=== PATIENT | female | born 1945 | race Caucasian/White ===

== ENCOUNTER 2020-01-07 12:42 | Emergency (ER) | payer MEDICARE, SELFPAY ==
[2020-01-07] MEDS ORDERED: Fentanyl 100 MCG/2 ML VIAL ONE (12:52)
--- NOTE | 2020-01-07 13:57 | RAD ---
RIGHT WRIST 4 VIEWS: Date: 01/07/2020 COMPARISON: None. FINDINGS: There is interarticular distal radius fracture with dorsal angulation and impaction. There is also in terarticular distal ulnar fracture seen to the distal radioulnar joint also with mild impaction and d orsal angulation. The scaphoid appears to be intact. Mild demineralization. IMPRESSION: Interarticular distal radius and distal ulnar fractures with impaction and dorsal angulation. POS: [facility]
--- NOTE | 2020-01-07 13:58 | RAD ---
RIGHT SHOULDER 3 VIEWS: Date: 01/07/2020 HISTORY: Injury from trauma following a fall. FINDINGS: Marked AC joint arthrosis changes, as well as some glenohumeral joint arthrosis changes of the right shoulder. No evidence for acute fracture or dislocation. 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 POS: [facility]
== END 2020-01-07 15:45 | disposition home or self-care (01) ==
LOC: ERS 12:42
DX: S52.531A Colles' fracture of right radius, initial encounter for closed fracture (principal); S52.571A Other intraarticular fracture of lower end of right radius, initial encounter for closed fracture; S52.601A Unspecified fracture of lower end of right ulna, initial encounter for closed fracture; W10.9XXA Fall (on) (from) unspecified stairs and steps, initial encounter
CPT/HCPCS: 29105; 96374; 96376; J3010

== ENCOUNTER 2020-01-13 10:01 | Day surgery (SDC) | payer MEDICARE ==
[2020-01-12 13:09] VITALS: BMI 35.4
[2020-01-13] MEDS ORDERED: Ondansetron PF 4 MG/2 ML Vial ONE (11:04)
[2020-01-13] MEDS ORDERED: Ropivacaine 0.2% HCl/PF (40 MG/20 ML VIAL) ONE (11:04)
[2020-01-13] MEDS ORDERED: PROPOFOL 200 MG/20 ML VIAL ONE (11:04)
[2020-01-13] MEDS ORDERED: Rocuronium Bromide 10 MG/ML (10ML VIAL) ONE (11:04)
[2020-01-13] MEDS ORDERED: Glycopyrrolate 0.2 MG/ML 5 ML SYRINGE ONE (11:04)
[2020-01-13] MEDS ORDERED: Dexamethasone 20 MG/5 ML VIAL ONE (11:04)
[2020-01-13] MEDS ORDERED: Ropivacaine 0.5% HCl/PF (150 MG/30 ML VIAL) ONE (11:04)
[2020-01-13] MEDS ORDERED: EPHEDRINE 25 MG/5 ML SYRINGE ONE (11:04)
[2020-01-13] MEDS ORDERED: Midazolam HCl 2 mg/2 ml Vial ONE ×2 (12:02→12:03)
[2020-01-13] MEDS ORDERED: Lidocaine 1% PF 5 ML VIAL ONE (12:02)
[2020-01-13] MEDS ORDERED: Fentanyl 100 MCG/2 ML VIAL ONE ×2 (12:02→12:04)
[2020-01-13] MEDS ORDERED: Lidocaine 2% Jelly 5 ML TUBE ONE (12:28)
[2020-01-13] MEDS ORDERED: Fentanyl 100 MCG/2 ML VIAL IV PRN (13:46)
[2020-01-13] MEDS ORDERED: Zolpidem Tartrate 5 MG TAB PO PRN (13:46)
[2020-01-13] MEDS ORDERED: Ondansetron PF 4 MG/2 ML Vial IVP PRN (13:46)
[2020-01-13] MEDS ORDERED: Acetaminophen 325 MG TAB PO PRN (13:46)
[2020-01-13] MEDS ORDERED: HYDROcodone/Acetaminophen 10/325 mg Tablet PO PRN ×2 (13:46)
[2020-01-13] MEDS ORDERED: traMADol HCl 50 MG TAB PO PRN ×2 (13:46)
[2020-01-13] MEDS ORDERED: Promethazine HCl 25 MG/ML VIAL IM PRN (13:46)
[2020-01-13] MEDS ORDERED: Ropivacaine 0.2% 550 ML 550 ML NERVE BLCK SCH (13:46)
--- NOTE | 2020-01-13 13:47 | OP ---
DATE OF PROCEDURE: 01/13/2020 PROCEDURE PERFORMED: Open reduction and internal fixation of right distal radius fracture. PREOPERATIVE DIAGNOSIS: Right intra-articular distal radius fracture. POSTOPERATIVE DIAGNOSIS: Right intra-articular distal radius fracture. COMPLICATIONS: None. ESTIMATED BLOOD LOSS: Minimal. CLINICAL ACCOUNT EXECUTIVE: Danielito Kerr PA-C IMPLANTS: Synthes volar distal radial plate with locking and nonlocking screws. INDICATIONS FOR PROCEDURE: Ms. Drew is a 74-year-old female, who has fallen and fractured her distal radius. She was indicated for open reduction and internal fixation of the bone to restore anatomic alignment and promote healing. Risks have been reviewed in detail. She elected to proceed with the operation. DESCRIPTION OF PROCEDURE: Ms. Drew was identified in the preoperative holding area. Her correct extremity was marked. She was carried to the operating room. She was positioned supine. General anesthesia was induced. A multidisciplinary time-out was performed. The right upper extremity was prepped and draped in sterile fashion. We began the procedure with volar approach to the wrist. We dissected down through the subcutaneous tissues to the FCR tendon. The tendon sheath was opened. We cleared the underlying pronator quadratus. We exposed the underlying distal radial fracture. At this point, we reduced the fracture, pulling traction and took x-rays confirming this. We pinned the fracture in place. We then applied a volar distal radial plate. A screw was placed proximally as well as multiple distal screws. This held the fracture well. We took final images after all screws were placed. We thoroughly irrigated with copious lavage. We then closed with 0 Vicryl suture, 2-0 Vicryl suture, and marcus for the skin. A sterile dressing and a splint were placed. The patient was taken to the recovery room in good condition. Job ID: [id number]
--- NOTE | 2020-01-13 13:50 | RAD ---
RIGHT WRIST: 01/13/20 Two fluoroscopic images from OR presented. INDICATION: Intraoperative imaging during internal fixation open reduction procedure. FINDINGS: Images demonstrate plate and screws transfixing the distal radius. Fracture of the ulna is noted. POS: [facility]
[2020-01-13] MEDS ORDERED: HYDROcodone/Acetaminophen 5/325 mg Tablet PO PRN (14:37)
[2020-01-13] MEDS ORDERED: Ondansetron PF 4 MG/2 ML Vial SLOW IVP PRN (14:38)
[2020-01-13] MEDS ORDERED: Morphine 2 MG/ML SYRINGE SLOW IVP PRN (14:39)
[2020-01-13] MEDS ORDERED: Cepastat Lozenges 1 LOZ PO PRN (14:40)
== END 2020-01-13 16:18 | disposition home or self-care (01) ==
LOC: SDC 10:01
PROVIDERS: ATTEND Orthopaedic Surgery
PROC: 0PSH04Z Reposition Right Radius with Internal Fixation Device, Open Approach (ICD-10-PCS; principal; 2020-01-13)
DX: S52.571A Other intraarticular fracture of lower end of right radius, initial encounter for closed fracture (principal); W19.XXXA Unspecified fall, initial encounter
CPT/HCPCS: 25608; 73110; 76000; A4306; C1713 ×2; J0690; J1100; J2001; J2250; J2405; J2704; J2795; J3010

== ENCOUNTER 2020-01-14 02:08 | Emergency (ER) | payer MEDICARE ==
[2020-01-14] MEDS ORDERED: Morphine 4 MG/ML VIAL ONE (03:25)
[2020-01-14] MEDS ORDERED: Ketorolac Tromethamine 30 MG/ML VIAL ONE (03:25)
[2020-01-14] MEDS ORDERED: HYDROcodone/Acetaminophen 5/325 mg Tablet ONE (07:20)
--- NOTE | 2020-01-14 07:46 | RAD ---
Right forearm 2 views HISTORY: Fracture. Injury. COMPARISON: 01/13/2020. FINDINGS: Volar compression plate and multiple screws now transfix the comminuted partially impacted distal radial fracture, in anatomic alignment. No rober-hardware lucency. Just posterior to the major fracture plane is a minimally distracted 1.1 cm irregular shaped ossific fragment. Comminuted, minimally displaced distal ulnar fracture unchanged in alignment. Minimal ulna negative variant. Proximal ulna and radius are intact. There are degenerative changes of the wrist and elbow. IMPRESSION : Internal fixation of the distal right radial fracture. Distal ulnar fracture. Appearance is stable.
== END 2020-01-14 09:14 | disposition home or self-care (01) ==
LOC: ERS 02:08
DX: G89.18 Other acute postprocedural pain (principal); G56.81 Other specified mononeuropathies of right upper limb; Z79.899 Other long term (current) drug therapy
CPT/HCPCS: 96372; J1885; J2270